=== PATIENT | female | born 1990 | race Caucasian/White ===

== ENCOUNTER 2017-08-25 12:51 | Emergency (ER) | payer OTHER ==
[~2017-08-25] VITALS: Ht 165.1 cm; Wt 70.8 kg
[2017-08-25 12:53] VITALS: BP_SYST 125
[2017-08-25 13:39] LABS: BILIRUBIN,URINE NEGATIVE (NEGATIVE); BLOOD, URINE NEGATIVE (NEGATIVE); CLARITY/URINE CLEAR (CLEAR); COLOR,URINE YELLOW (YELLOW); GLUCOSE,URINE NEGATIVE (NEGATIVE); KETONES,URINE TRACE (NEGATIVE); LEUKOCYTE ESTERASE ,URINE 1+ (NEGATIVE); NITRITE, URINE NEGATIVE (NEGATIVE); PROTEIN URINE NEGATIVE (NEGATIVE); UROBILINOGEN,URINE 0.2 (0.2-1.0)
[2017-08-25 13:40] LABS: HEMOGLOBIN 15.4 g/dL (12.0-16.0); MEAN CORPUSCULAR HEMOGLOBIN 31 pg (27-31); MONOCYTES # (AUTO) 1.3 K/uL (0.0-1.0); NEUTROPHILS # (AUTO) 7.4 K/uL (1.8-7.7); NEUTROPHILS % (AUTO) 60.6 % (40.0-70.0); RED BLOOD CELL COUNT(AUTO) 5.05 MIL/uL (4.2-6.2); WHITE BLOOD COUNT (AUTO) 12.2 K/uL (4.8-10.8)
[2017-08-25 13:42] LABS: BASOPHILS # (AUTO) 0.2 K/uL (0.0-0.2); BASOPHILS % (AUTO) 1.4 % (0.0-2.0); EOSINOPHILS # (AUTO) 0.7 K/uL (0.0-0.4); HEMATOCRIT 45.9 % (36-48); LYMPHOCYTES # (AUTO) 2.6 K/uL (1.0-5.5); LYMPHOCYTES % (AUTO) 21.3 % (20.5-51.5); MEAN CORPUSCULAR HGB CONC 34 % (32-36); MEAN CORPUSCULAR VOLUME 91 fL (79.0-98.0); MONOCYTES % (AUTO) 10.7 % (1.7-9.3); PLATELET COUNT (AUTO) 362 K/uL (130-430); RED CELL DISTRIBUTION WIDTH 11.8 % (9.0-15.0)
[2017-08-25 13:47] LABS: BACTERIA,URINE RARE /HPF (None Seen); RBC,URINE 0-3 /HPF (0-3)
[2017-08-25 13:53] LABS: CREATININE 0.76 mg/dL (0.55-1.30); POTASSIUM 3.6 mmol/L (3.5-5.1)
[2017-08-25 13:55] LABS: PROTHROMBIN TIME 9.9 SECS (9.5-12.5)
[2017-08-25] MEDS ORDERED: BELLADONNA ALKALOIDS/PHENOBARB 5 ML UDC PO ONE (14:45)
[2017-08-25] MEDS ORDERED: MAG-AL HYDROX/SIMETH 30 ML UDC PO ONE (14:45)
[2017-08-25] MEDS ORDERED: LIDOCAINE VISCOUS 2%, 15 ML UDC MM ONE (14:45)
[2017-08-25] MEDS ORDERED: IPRATROPIUM/ALBUTEROL SULFATE 3 ML AMPUL.NEB INH ONE (16:00)
[2017-08-25] MEDS ORDERED: IOHEXOL 100 ML IV ONE (16:13)
[2017-08-25 18:00] VITALS: BP_SYST 107
== END 2017-08-25 18:00 | disposition home or self-care (01) ==
LOC: SED 12:51
DX: K52.9 Noninfective gastroenteritis and colitis, unspecified (principal)
CPT/HCPCS: 36415; 71045; 74177; 80053; 81000; 81025; 82150; 83690; 85025; 85610; 94640; 99285; J2001; Q9967